=== PATIENT | male | born 1990 | race African-American/Black ===

== ENCOUNTER 2023-06-20 18:07 | Observation (INO) ==
[2023-06-20 19:23] LABS: ABS Eosinophils 0.1 10^3/uL (0.0-0.5); ABS Lymphocytes 1.6 10^3/uL (1.0-4.8); ABS Monocytes 1.4 10^3/uL (0.0-1.1); ABS Neutrophils 13.2 10^3/uL (1.5-7.6); ABS Nucleated RBC 0.01 10^3/ul; Eosinophil % 0.7 %; Hematocrit 44.6 % (38-53); Hemoglobin 15.1 g/dL (13.2-16.3); Lymphocyte % 9.6 %; Mean Corpuscular Hemoglobin 30.2 pg (27-33); Mean Corpuscular Hgb Conc 33.8 g/dL (31-36); Mean Corpuscular Volume 89.2 fL (80-97); Mean Platelet Volume 8.3 fL (7.5-11.2); Nucleated Red Blood Cells % 0.1 %/100WBC (0.0-0.8); Platelet Count 222 10^3/uL (150-450); Red Blood Count 5.01 10^6/uL (4.06-5.63); White Blood Count 16.2 10^3/uL (3.6-10.2)
[2023-06-20] MEDS: NS 0.9% 1000 ml BAG 1,000 ML IV ONE (19:27)
[2023-06-20 19:52] LABS: ALT 18 U/L (7-52); AST 22 U/L (13-39); Acetaminophen < 15 mcg/mL; Albumin 4.8 g/dL (3.2-5.2); Albumin/Globulin Ratio 1.9 (1-3); Alcohol, S < 13 mg/dL (<13); Alkaline Phosphatase 68 U/L (35-149); Anion Gap 12 mmol/L (2-16); Blood Urea Nitrogen 18 mg/dL (6-24); CO2 Carbon Dioxide 26 mmol/L (22-32); Calcium 9.3 mg/dL (8.6-10.3); Chloride 101 mmol/L (101-111); Globulin 2.5 g/dL (2-4); Glucose 114 mg/dL (70-100); Salicylate < 2.50 mg/dL (<30); Sodium 139 mmol/L (135-145); Total Bilirubin 0.4 mg/dL (0.2-1.0); Total Protein 7.3 g/dL (6.4-8.9); eGFR CKD-EPI 102.6 (>60)
[2023-06-20] MEDS ORDERED: diazePAM INJ CARPUJECT 5 MG/ML SYRINGE IV PRN (22:32)
[2023-06-20] MEDS: diazePAM INJ CARPUJECT 5 MG/ML SYRINGE IV ONE (22:39)
[2023-06-20 23:45] LABS: Urine Benzodiazepine Screen None Detected (None Detect); Urine Buprenorphine Screen None Detected (None Detect); Urine Cannabinoids Screen None Detected (None Detect); Urine Fentanyl Screen Presumptive Positive (None Detect); Urine Hydrocodone Screen None Detected (None Detect); Urine Opiates Screen None Detected (None Detect)
[2023-06-21 06:15] LABS: ABS Basophils 0.1 10^3/uL (0.0-0.1); ABS Eosinophils 0.2 10^3/uL (0.0-0.5); ABS Lymphocytes 1.8 10^3/uL (1.0-4.8); ABS Monocytes 0.9 10^3/uL (0.0-1.1); ABS Neutrophils 3.8 10^3/uL (1.5-7.6); Eosinophil % 2.9 %; Hematocrit 43.5 % (38-53); Hemoglobin 14.8 g/dL (13.2-16.3); Lymphocyte % 26.7 %; Mean Corpuscular Hemoglobin 30.6 pg (27-33); Mean Corpuscular Hgb Conc 34.1 g/dL (31-36); Mean Corpuscular Volume 89.8 fL (80-97); Mean Platelet Volume 7.6 fL (7.5-11.2); Platelet Count 179 10^3/uL (150-450); Red Blood Count 4.84 10^6/uL (4.06-5.63); Red Cell Distribution Width 12.9 % (12-17); White Blood Count 6.7 10^3/uL (3.6-10.2)
[2023-06-21 06:48] LABS: Albumin 4.2 g/dL (3.2-5.2); Albumin/Globulin Ratio 1.8 (1-3); Calcium 8.8 mg/dL (8.6-10.3); Creatinine, Serum 0.84 mg/dL (0.67-1.17); Globulin 2.4 g/dL (2-4); Total Bilirubin 0.3 mg/dL (0.2-1.0); Total Protein 6.6 g/dL (6.4-8.9); eGFR CKD-EPI 118.8 (>60)
[2023-06-21] MEDS ORDERED: Lorazepam PYXIS KEY PRN (07:44)
[2023-06-21] MEDS ORDERED: LORazepam 2 mg VIAL 1 ml IV PUSH PRN (07:44)
[2023-06-21] MEDS ORDERED: diazePAM INJ CARPUJECT 5 MG/ML SYRINGE IV PRN ×2 (07:49→17:34)
[2023-06-21] MEDS: Al Hydrox/Mg Hydrox/Simet LIQ 30 ML UDC PO PRN (09:55)
[2023-06-21] MEDS: Enoxaparin 40 MG/0.4 ML SYR SUBCUT SCH (09:56)
[2023-06-21] MEDS: Pantoprazole VIAL 40 MG VIAL IV ONE (09:56)
[2023-06-21] MEDS: Iohexol 300 (CONTRAST) 10 ML SDV IV ONE (13:54)
[2023-06-21 16:51] LABS: Carbamazepine 3.9 mcg/mL (4.0-12.0)
[2023-06-21] MEDS ORDERED: OLANZapine 10 mg TAB*ODT PO PRN (17:35)
[2023-06-22 06:21] LABS: Hematocrit 42.8 % (38-53); Hemoglobin 14.7 g/dL (13.2-16.3); Mean Corpuscular Hemoglobin 30.2 pg (27-33); Mean Corpuscular Hgb Conc 34.3 g/dL (31-36); Mean Corpuscular Volume 88.1 fL (80-97); Mean Platelet Volume 7.8 fL (7.5-11.2); Platelet Count 170 10^3/uL (150-450); Red Blood Count 4.85 10^6/uL (4.06-5.63); White Blood Count 6.6 10^3/uL (3.6-10.2)
[2023-06-22 06:49] LABS: Calcium 8.7 mg/dL (8.6-10.3); Creatinine, Serum 0.96 mg/dL (0.67-1.17); Potassium 4.2 mmol/L (3.5-5.0); eGFR CKD-EPI 107.7 (>60)
[2023-06-22] MEDS ORDERED: Propofol 10 MG/ML 20 ML BTL ONE (07:15)
[2023-06-22] MEDS ORDERED: Ondansetron 4 mg VIAL 2 MG/ML 2 ml VIAL ONE (07:15)
[2023-06-22] MEDS ORDERED: Lidocaine 2% PF 5 ML VIAL ONE (07:15)
[2023-06-22] MEDS ORDERED: Midazolam 2 mg/2 ml VIAL 1 mg/ml 2 ml VIAL (2 mg) ONE (07:16)
[2023-06-22] MEDS ORDERED: fentaNYL 100 mcg/2 ml 50 MCG/ML VIAL ONE (07:16)
[2023-06-22 15:47] LABS: Urine Alcohol Negative mg/dL (Cutoff: 10); Urine Barbiturates Negative; Urine Benzodiazepines Negative; Urine Cocaine Negative; Urine Methadone Negative (Negative); Urine Opiates Negative (Negative); Urine Phencyclidine Negative ng/mL (Cutoff: 25); Urine Tetrahydrocannabinol Negative ng/mL (Cutoff: 50)
[2023-06-22 17:20] VITALS: BP 142/97
== END 2023-06-22 17:45 ==
LOC: ED 18:07 → EDHOLD 18:07 → SUATTDRO 22:02 → EDHOLD 06-21 00:22 → MED 06-21 00:43
PROVIDERS: ADMIT Internal Medicine; ATTEND Internal Medicine
PROC: O.GIEGD (2023-06-22 14:50)